=== PATIENT | female | born 1960 | race Hispanic/Latino ===

== ENCOUNTER 2017-11-27 08:02 | Outpatient (CLI) | payer BC | END 2017-11-27 08:03 | disposition home or self-care (01) | LOC: BICMAMMO 08:02 | PROVIDERS: ATTEND Family Medicine | DX: Z12.31 Encounter for screening mammogram for malignant neoplasm of breast (principal); M81.0 Age-related osteoporosis without current pathological fracture; Z80.3 Family history of malignant neoplasm of breast | CPT/HCPCS: 77063; 77067; 77080 ==

== ENCOUNTER 2018-12-20 15:10 | Outpatient (CLI) | payer BC ==
--- NOTE | 2018-12-20 16:17 | ULT ---
EXAM: Transabdominal pelvic ultrasound PROVIDED CLINICAL HISTORY: Pelvic mass COMPARISON: None FINDINGS: There is a large cystic mass present within the pelvis measuring at least 17 cm in craniocaudal dimen zahra and 14.3 cm in transverse dimension. This is separate from the urinary bladder and demonstrates no change in appearance post void. The uterus is not definitely identified. The ovaries are not discretely identified. No evidence for free pelvic fluid. IMPRESSION: Large cystic pelvic mass, the etiology of which is not certain. Cystic neoplasm should be considered. Correlation with pelvic MRI recommended.
== END 2018-12-20 15:11 | disposition home or self-care (01) ==
LOC: SCSULT 15:10
PROVIDERS: ATTEND Family Medicine
DX: R19.09 Other intra-abdominal and pelvic swelling, mass and lump (principal); N94.89 Other specified conditions associated with female genital organs and menstrual cycle
CPT/HCPCS: 76856

== ENCOUNTER 2019-03-21 05:30 | Day surgery (SDC) | payer BC ==
[2019-03-18 15:41] VITALS: BMI 26.0
[2019-03-18 15:51] LABS: Hemoglobin 13.4 g/dL (12.0-16.0); Mean Corpuscular HGB CONC 33.8 g/dL (32.0-36.0); Mean Corpuscular Hemoglobin 31.3 pg (27.0-31.0); Mean Corpuscular Volume 92.7 fL (78.0-98.0); Mean Platelet Volume 8.6 fL (7.4-10.4); Platelet Count 173 thou/uL (130-400); RBC Distribution Width 12.2 % (11.5-14.5); Red Blood Cell (RBC) Count 4.27 mill/uL (4.20-5.40); White Blood Cell (WBC) Count 6.4 thou/uL (4.8-10.8)
[2019-03-21] MEDS ORDERED: Famotidine/PF 20 mg/2ml Vial ONE (06:10)
[2019-03-21] MEDS ORDERED: Gabapentin 300 MG CAP ONE (06:10)
[2019-03-21] MEDS ORDERED: CeleCOXIB 100 MG CAP ONE (06:11)
[2019-03-21] MEDS ORDERED: Midazolam HCl 2 mg/2 ml Vial ONE (06:48)
[2019-03-21] MEDS ORDERED: Fentanyl 100 MCG/2 ML VIAL ONE ×3 (06:48→09:58)
[2019-03-21] MEDS ORDERED: Bupivacaine PF 0.5% 30 ML VIAL ONE (06:53)
[2019-03-21] MEDS ORDERED: Promethazine HCl 25 MG/ML VIAL IM PRN ×2 (09:12→09:25)
[2019-03-21] MEDS ORDERED: Zolpidem Tartrate 5 MG TAB PO PRN (09:12)
[2019-03-21] MEDS ORDERED: HYDROcodone/Acetaminophen 5/325 mg Tablet PO PRN ×2 (09:12)
[2019-03-21] MEDS ORDERED: diphenhydrAMINE 25 MG CAP PO PRN (09:12)
[2019-03-21] MEDS ORDERED: Morphine 4 MG/ML VIAL SLOW IVP PRN (09:12)
[2019-03-21] MEDS ORDERED: Bisacodyl 10 MG SUPP PR PRN (09:12)
[2019-03-21] MEDS ORDERED: Simethicone Chewable 80 MG TAB PO PRN (09:12)
[2019-03-21] MEDS ORDERED: Ondansetron PF 4 MG/2 ML Vial IVP PRN (09:12)
[2019-03-21] MEDS ORDERED: Ondansetron HCl/PF 4 MG/2 ML Vial IVP PRN (09:25)
[2019-03-21] MEDS ORDERED: Promethazine HCl 25 MG/ML VIAL SLOW IVP PRN (09:25)
[2019-03-21] MEDS ORDERED: Dexamethasone 20 MG/5 ML VIAL ONE (09:42)
[2019-03-21] MEDS ORDERED: Ketorolac Tromethamine 30 MG/ML VIAL ONE (09:42)
[2019-03-21] MEDS ORDERED: PROPOFOL 200 MG/20 ML VIAL ONE (09:42)
[2019-03-21] MEDS ORDERED: Rocuronium Bromide 10 MG/ML (10ML VIAL) ONE (09:42)
[2019-03-21] MEDS ORDERED: Lidocaine 1% PF 5 ML VIAL ONE (09:42)
[2019-03-21] MEDS ORDERED: Glycopyrrolate 0.2 MG/ML 5 ML SYRINGE ONE (09:42)
[2019-03-21] MEDS ORDERED: Ondansetron PF 4 MG/2 ML Vial ONE (09:42)
--- NOTE | 2019-03-21 11:21 | OP ---
DATE OF PROCEDURE: 03/21/2019 PREOPERATIVE DIAGNOSES: 1. Large ovarian cyst. 2. Desires hysterectomy and bilateral salpingo-oophorectomy. 3. Low-risk OVA1 score. PROCEDURES PERFORMED: Robotic-assisted total laparoscopic hysterectomy with bilateral salpingo-oophorectomy. TAPPER OPERATOR: Debbi Smith PA-C COMPLICATIONS: None. ESTIMATED BLOOD LOSS: Less than 50 mL. ANESTHESIA: GETA. COMPLICATIONS: None. VAGINAL FINDINGS: Normal-appearing cervix. Uterus sounds to 6 cm. LAPAROSCOPIC FINDINGS: 1. Large left ovarian cyst, filling the left pelvis to the midline to the umbilicus. 2. Normal-appearing uterus, bilateral tubes, and right ovary. 3. Cyst fluid, clear, approximately 1800 mL. PROCEDURE IN DETAIL: The patient was taken back to the OR with IV fluids running. Once she was in the OR, general anesthesia was obtained. The patient was then placed in low dorsal lithotomy position and the abdomen and vagina were prepped and draped in normal fashion for gynecologic surgery. Surgeons were gowned and gloved. Farley catheter was placed in the urine and the bladder was drained. A David syringe was attached to the tip of the Farley catheter for bladder manipulation during the case. The vagina was inspected with an operative speculum. The anterior lip of cervix was grasped with a single-tooth tenaculum and the uterus sounded to approximately 6 cm. A [employer] manipulator was assembled with a 6-cm tip and a 3.5 cm cup and placed into the uterus and vagina in routine fashion. The surgeon's gloves were changed and attention was then turned to the laparoscopic portion of the case. The pelvic mass could be palpated to the umbilicus. Approximately 3 cm above the umbilicus, a 12-mm skin incision was made with a scalpel. A Veress needle was then placed through the skin incision and the abdomen was insufflated without difficulty. A 12-mm trocar was placed through this incision followed by the laparoscope. The laparoscope was then used to examine around the pelvic mass, which appeared to be coming from the left ovary. Next, the right upper quadrant 11-mm port was placed and then the left and right lower quadrant 8-mm ports were placed. Next, the suction medical editor was used to suction and drain the large cystic mass after the mass was intentionally punctured with an obturator tip, immediately clear fluid was noted. The part of the fluid was collected in a catch for cytologic review. The mass was suctioned down to approximately 1500 mL of clear fluid and completely decompressed. The ovarian cyst was then easily manipulated and was not adhered to any of the pelvic anatomy. Next, the hysterectomy portion of the procedure began. The left ovary and fallopian tube were elevated from the patient's left side. The left ureter was noted to be running well below the planned dissection of the IP ligament. The IP ligament was identified, cauterized, and transected. The round ligament on the patient's left side was then identified, cauterized, and transected. It was dissected down into anterior and posterior leaves toward the level of the uterine artery. The bladder was back filled and noted to be well away from the planned colpotomy site. A bladder flap was created using the anterior leaf of the broad ligament and the bladder was dissected away from the planned colpotomy site and away from the cervix. The uterine artery on the patient's left side was then skeletonized, cauterized, and transected with hemostasis noted. Next, attention was turned to the contralateral side, where the right ovary was inspected, was noted to be normal appearing. The IP ligament was identified and the ureter on the patient's right side was identified and noted to be well away from the planned dissection of the IP ligament. The IP ligament was then cauterized and transected. The right round ligament was cauterized, transected, and divided into anterior and posterior leaves down towards the level of the uterine artery. The bladder flap was completed from the right side to the contralateral side and then the bladder was dissected away from the planned colpotomy site. The uterine artery on the patient's right side was skeletonized, cauterized, and transected with good hemostasis noted. The colpotomy was then performed circumferentially using monopolar scissors. The uterine, tubes, and ovaries specimen were retracted into the vagina and then removed. An occluder balloon was then placed into the vagina to return pneumoperitoneum. The vaginal cuff was then irrigated and any small areas of bleeding were controlled with Bovie cauterization. The vaginal cuff was then reapproximated and closed with Stratafix suture in a running locked fashion and closed in 2 layers. After the vaginal cuff closure was complete, the vaginal cuff and the bladder flap dissection and adnexal dissections were copiously irrigated and suctioned dry. No areas of bleeding were noted. The pressure was dropped down to 6 mmHg with a vaginal cuff inspected and no bleeding noted. The counts were correct. All instruments were removed from the abdomen. The gas was released from the abdomen. The supraumbilical port site was closed at the fascial layer with Vicryl suture. All 4 skin incisions were closed with Monocryl suture and dressed with Dermabond dressing. At the end of the case. The vagina was inspected with no bleeding noted from the vaginal cuff or from the vaginal sidewalls. The patient was then cleaned, dried, extubated, and taken to the recovery room in good condition. Job ID: [id number]
[2019-03-21] MEDS: Sodium Chloride 0.9% 1,000 ML IV SCH ×2 (11:25→15:56)
[2019-03-21] MEDS ORDERED: Ketorolac Tromethamine 30 MG/ML VIAL IVP SCH (12:00)
[2019-03-21] MEDS: Ketorolac Tromethamine 30 MG/ML VIAL IVP SCH ×2 (14:56→21:01)
[2019-03-21] MEDS ORDERED: traMADol HCl 50 MG TAB PO PRN (18:46)
[2019-03-21] MEDS: traMADol HCl 50 MG TAB PO PRN (19:06)
[2019-03-22] MEDS: Ketorolac Tromethamine 30 MG/ML VIAL IVP SCH (05:02)
[2019-03-22] MEDS: Sodium Chloride 0.9% 1,000 ML IV SCH (05:02)
[2019-03-22] MEDS ORDERED: Ibuprofen 800 MG TAB PO SCH (06:00)
[2019-03-22 06:18] LABS: Hemoglobin 11.4 g/dL (12.0-16.0); Mean Corpuscular HGB CONC 30.9 g/dL (32.0-36.0); Mean Corpuscular Hemoglobin 29.3 pg (27.0-31.0); Mean Corpuscular Volume 94.7 fL (78.0-98.0); Mean Platelet Volume 8.5 fL (7.4-10.4); Platelet Count 167 thou/uL (130-400); RBC Distribution Width 12.4 % (11.5-14.5); White Blood Cell (WBC) Count 8.5 thou/uL (4.8-10.8)
[2019-03-22 07:59] VITALS: BP 119/66; TEMP 99
--- NOTE | 2019-03-22 08:04 | PDOC.EVN ---
Event Note - Event Note Event Note: POD1 S: no NV, minimal discomfort, tolerating reg diet O: VS WNL Gen: NAD Abdom nondistended, inc CDI A/P: POD1 sp MARIE BSO for large ovarian cyst, [facility] op goals met, [facility]
[2019-03-22] MEDS: traMADol HCl 50 MG TAB PO PRN (08:06)
[2019-03-22] MEDS ORDERED: Multivit, Therapeutic 1 TAB PO SCH (09:00)
[2019-03-22] MEDS ORDERED: Calcium Carbonate 500 MG TAB PO SCH (09:00)
--- NOTE | 2019-03-22 09:04 | DIS ---
DATE OF ADMISSION: 03/21/2019 DATE OF DISCHARGE: 03/22/2019 HOSPITAL COURSE: The patient was admitted on 03/21/2019 for a scheduled robotic-assisted total laparoscopic hysterectomy and bilateral salpingectomy for large left ovarian cyst. The patient underwent the aforementioned procedure without difficulty. On postoperative day #1, her postop goals were met and she was discharged to home in good condition. Job ID: [id number]
== END 2019-03-22 11:00 | disposition home or self-care (01) ==
LOC: SDC 05:30 → 3SE 10:00 → SDC 03-22 11:00
PROVIDERS: ATTEND Obstetrics & Gynecology
PROC: 0UT24ZZ Resection of Bilateral Ovaries, Percutaneous Endoscopic Approach (ICD-10-PCS; principal; 2019-03-21)
PROC: 0UT94ZZ Resection of Uterus, Percutaneous Endoscopic Approach (ICD-10-PCS; principal; 2019-03-21)
PROC: 0UT74ZZ Resection of Bilateral Fallopian Tubes, Percutaneous Endoscopic Approach (ICD-10-PCS; principal; 2019-03-21)
DX: D27.1 Benign neoplasm of left ovary (principal); N83.201 Unspecified ovarian cyst, right side; N80.0 Endometriosis of uterus; N72 Inflammatory disease of cervix uteri
CPT/HCPCS: 36415; 85027; 86850; 86900; 86901; 88112; 88307; J0690; J1100; J1885; J2001; J2250; J2270; J2405; J2704; J3010; S0020; S0028

== ENCOUNTER 2020-02-24 13:08 | Outpatient (CLI) | payer BC ==
--- NOTE | 2020-02-24 14:16 | BD ---
BONE DENITOMETRY USING DEXA: 02/24/20 HISTORY: Postmenopausal screening for osteoporosis. FINDINGS: Lumbar Spine: BMD (g/cm2) T-SCORE Z-SCORE L1 0.733 -2.3 -1.0 L2 0.723 -2.8 -1.2 L3 0.709 -3.4 -1.8 L4 0.654 -3.7 -2.0 L1-L4 0.702 -3.1 -1.6 Femoral Neck: 0.492 -3.2 -1.8 Total Femur: 0.699 -2.0 -0.9 Impression: Osteoporosis. POS: AH
--- NOTE | 2020-02-24 14:51 | MMO ---
Bilateral MAMMO Bilat Screen [facility]. CLINICAL HISTORY: Patient is 59 years old and is seen for screening. The patient has no personal history of cancer. VIEWS: The views performed were: bilateral craniocaudal with tomosynthesis and bilateral mediolateral oblique with tomosynthesis. FILMS COMPARED: The present examination has been compared to prior imaging studies performed at [facility] on 09/27/2014, 11/21/2015, 11/26/2016 and 11/27/2017. This study has been interpreted with the assistance of computer-aided detection. MAMMOGRAM FINDINGS: The breasts are heterogeneously dense, which could obscure a lesion on mammography. There are stable benign appearing calcifications seen in both breasts. Nodularity is stable. There are no suspicious masses, suspicious calcifications, or new areas of architectural distortion. IMPRESSION: THERE IS NO MAMMOGRAPHIC EVIDENCE OF MALIGNANCY. A ROUTINE FOLLOW-UP MAMMOGRAM IN 1 YEAR IS RECOMMENDED. THE RESULTS OF THIS EXAM WERE SENT TO THE PATIENT. ACR BI-RADS Category 2 - Benign finding MAMMOGRAPHY NOTE: 1. A negative mammogram report should not delay a biopsy if a dominant of clinically suspicious mass is present. 2. Approximately 10% to 15% of breast cancers are not detected by mammography. 3. Adenosis and dense breasts may obscure an underlying neoplasm. Reported by: MACKENZIE MORSE MD Electonically Signed: [id number]
== END 2020-02-24 13:09 | disposition home or self-care (01) ==
LOC: BICMAMMO 13:08
PROVIDERS: ATTEND Family Medicine
DX: Z12.31 Encounter for screening mammogram for malignant neoplasm of breast (principal); M81.0 Age-related osteoporosis without current pathological fracture
CPT/HCPCS: 77063; 77067; 77080

== ENCOUNTER 2021-02-27 10:24 | Outpatient (CLI) | payer BC | END 2021-02-27 10:25 | disposition home or self-care (01) | LOC: BICMAMMO 10:24 | PROVIDERS: ATTEND Family Medicine | DX: Z12.31 Encounter for screening mammogram for malignant neoplasm of breast (principal); Z80.3 Family history of malignant neoplasm of breast | CPT/HCPCS: 77063; 77067 ==

== ENCOUNTER 2023-04-24 12:53 | Outpatient (CLI) | payer BC | END 2023-04-24 12:54 | disposition home or self-care (01) | LOC: BICMAMMO 12:53 | PROVIDERS: ATTEND Family Medicine | DX: Z12.31 Encounter for screening mammogram for malignant neoplasm of breast (principal); M81.0 Age-related osteoporosis without current pathological fracture; M85.89 Other specified disorders of bone density and structure, multiple sites; Z80.3 Family history of malignant neoplasm of breast | CPT/HCPCS: 77063; 77067; 77080 ==